=== PATIENT | female | born 1950 | race Caucasian/White ===

== ENCOUNTER 2017-08-24 04:09 | Emergency (ER) | payer OTHER ==
[~2017-08-24] VITALS: Ht 162.6 cm; Wt 79.4 kg
[2017-08-24 04:19] VITALS: BP 165/81; PULSE 89; RESP 17; TEMP 98.9; O2SAT 100
--- NOTE | 2017-08-24 04:19 | NUR ---
Patient to ER bed 7 to gown for evaluation. Side rails up. Report given to LIU ANDRES.
--- NOTE | 2017-08-24 04:20 | NUR ---
PT IN ROOM 7 WITH MULTIPLE COMPLAINTS , NAUSEA , VOMITING , EPIGASTRIC PAIN , DR MADISON AWARE.
--- NOTE | 2017-08-24 04:21 | NUR ---
ER at bedside examining patient.
[2017-08-24] MEDS ORDERED: ONDANSETRON HCL 4 MG/2 ML VIAL IVP ONE (04:45)
[2017-08-24] MEDS ORDERED: PANTOPRAZOLE SODIUM 40 MG/VIAL (PROTONIX) IVP ONE (04:45)
--- NOTE | 2017-08-24 05:00 | NUR ---
# 20 gauge angiocath placed to right forearm. Use of asceptic technique. Opsite placed over site. Blood return noted. Blood for lab drawn from site. Flushed with 10 cc of normal saline. No evidence of infiltration noted. Patient tolerated well.
--- NOTE | 2017-08-24 05:10 | NUR ---
MEDICATION GIVEN PER MD ORDERS. TOLERATED WELL.
[2017-08-24 05:19] LABS: BASOPHILS % (AUTO) 0.5 % (0.0-2.0); EOSINOPHILS # (AUTO) 0.1 K/uL (0.0-0.4); EOSINOPHILS % (AUTO) 1.3 % (0.0-4.0); HEMATOCRIT 35.2 % (36-48); HEMOGLOBIN 11.6 g/dL (12.0-16.0); LYMPHOCYTES # (AUTO) 1.6 K/uL (1.0-5.5); LYMPHOCYTES % (AUTO) 26.2 % (20.5-51.5); MEAN CORPUSCULAR HEMOGLOBIN 28 pg (27-31); MEAN CORPUSCULAR HGB CONC 33 % (32-36); MEAN CORPUSCULAR VOLUME 84 fL (79.0-98.0); MONOCYTES # (AUTO) 0.5 K/uL (0.0-1.0); MONOCYTES % (AUTO) 7.3 % (1.7-9.3); NEUTROPHILS % (AUTO) 64.7 % (40.0-70.0); PLATELET COUNT (AUTO) 200 K/uL (130-430); RED CELL DISTRIBUTION WIDTH 12.7 % (9.0-15.0); WHITE BLOOD COUNT (AUTO) 6.2 K/uL (4.8-10.8)
[2017-08-24 05:31] LABS: CALCIUM 9.4 mg/dL (8.4-11.0); CREATININE 1.28 mg/dL (0.55-1.30); POTASSIUM 3.7 mmol/L (3.5-5.1)
[2017-08-24 05:33] LABS: INR 1.1 (0.8-1.2)
[2017-08-24 05:36] LABS: ALBUMIN 3.6 g/dL (3.4-4.8); TOTAL BILIRUBIN 0.8 mg/dL (0.0-1.0)
[2017-08-24] MEDS ORDERED: NACL 0.9% 1,000 ML IV ONE (06:00)
--- NOTE | 2017-08-24 06:20 | NUR ---
Urine specimen collected and sent to lab. Results to be given to TEOFILO FREEMAN.
[2017-08-24 06:31] LABS: AMYLASE 78 U/L (0-100); LIPASE 210 U/L (73-393)
[2017-08-24] MEDS ORDERED: METOCLOPRAMIDE HCL 10 MG/2 ML VIAL IVP ONE (07:15)
--- NOTE | 2017-08-24 07:15 | NUR ---
RECEIVED REPORT TO ASSUME CARE.
--- NOTE | 2017-08-24 07:23 | NUR ---
Patient given written and verbal discharge instructions and verbalizes understanding. ER MD discussed with patient the results and treatment provided. Patient in stable condition. ID arm band removed. IV catheter removed intact and dressing applied, no active bleeding. Rx of ZOFRAN given. Patient educated on pain management and to follow up with PMD. Pain Scale . Opportunity for questions provided and answered. PT DISCHARGED HOME AMBULATING TO CAR WITH .
[2017-08-24 07:30] LABS: BILIRUBIN,URINE NEGATIVE (NEGATIVE); BLOOD, URINE TRACE (NEGATIVE); CLARITY/URINE CLEAR (CLEAR); COLOR,URINE YELLOW (YELLOW); GLUCOSE,URINE NEGATIVE (NEGATIVE); KETONES,URINE NEGATIVE (NEGATIVE); LEUKOCYTE ESTERASE ,URINE NEGATIVE (NEGATIVE); NITRITE, URINE NEGATIVE (NEGATIVE); PH,URINE 6.5 (5.0-8.0); PROTEIN URINE NEGATIVE (NEGATIVE); UROBILINOGEN,URINE 0.2 (0.2-1.0)
[2017-08-24 07:32] LABS: BACTERIA,URINE RARE /HPF (None Seen); MUCUS,URINE None Seen /LPF (None Seen); RBC,URINE 0-3 /HPF (0-3); WBC,URINE NONE SEEN /HPF (0-3)
[2017-08-24 07:34] VITALS: BP 136/87; PULSE 74; RESP 24; TEMP 97; O2SAT 99
== END 2017-08-24 07:23 | disposition home or self-care (01) ==
LOC: SED 04:09
DX: I10 Essential (primary) hypertension (principal); R07.89 Other chest pain; R11.2 Nausea with vomiting, unspecified; M10.9 Gout, unspecified
CPT/HCPCS: 36415; 71010; 80053; 81000; 82150; 82550; 83690; 83880; 84484; 85025; 85610; 93005; 96361; 96374; 96375; 99285; C9113; J2405; J7030